=== PATIENT | male | born 1980 | race Caucasian/White ===

== ENCOUNTER 2017-10-29 13:10 | Emergency (ER) | END 2017-10-29 14:01 | disposition home or self-care (01) ==

== ENCOUNTER 2018-03-23 08:08 | Emergency (ER) | END 2018-03-23 10:29 | disposition home or self-care (01) ==

== ENCOUNTER 2018-03-28 13:51 | Emergency (ER) | END 2018-03-28 15:56 | disposition home or self-care (01) ==